=== PATIENT | male | born 2000 | race Caucasian/White ===

== ENCOUNTER 2022-05-02 15:22 | Emergency (ER) | payer SELFPAY ==
[~2022-05-02] VITALS: Ht 177.8 cm; Wt 103.4 kg
[2022-05-02 15:24] VITALS: BP 162/100
== END 2022-05-02 18:06 | disposition left against medical advice (07) ==
LOC: M ED 15:22
DX: Z53.21 Procedure and treatment not carried out due to patient leaving prior to being seen by health care provider (principal)

== ENCOUNTER 2022-07-04 00:18 | Emergency (ER) | payer OTHER, SELFPAY ==
[~2022-07-04] VITALS: Ht 177.8 cm; Wt 109.8 kg
[2022-07-04 01:31] VITALS: BP 136/98
[2022-07-04] MEDS ORDERED: HOLTER MONITOR XX ×2 (01:56→01:58)
[2022-07-04] MEDS ORDERED: HYDR50TA70 PO (05:59)
== END 2022-07-04 02:17 | disposition home or self-care (01) ==
LOC: M ED 00:18
DX: R00.2 Palpitations (principal); F41.9 Anxiety disorder, unspecified; F17.290 Nicotine dependence, other tobacco product, uncomplicated

== ENCOUNTER 2022-07-04 04:15 | Emergency (ER) | payer SELFPAY ==
[~2022-07-04] VITALS: Ht 177.8 cm; Wt 102.3 kg
[~2022-07-04 04:15] MED LIST: HOLTER MONITOR XX
[2022-07-04] MEDS ORDERED: HYDR50TA70 PO (05:59)
[2022-07-04 06:00] VITALS: BP 134/85
[2022-07-04] MEDS ORDERED: hydrOXYzine 50 MG TAB PO ONE (06:00)
== END 2022-07-04 06:15 | disposition home or self-care (01) ==
LOC: M ED 04:15 → EDBD 04:15 → M ED 06:15
DX: R00.2 Palpitations (principal); F41.1 Generalized anxiety disorder; F17.290 Nicotine dependence, other tobacco product, uncomplicated